=== PATIENT | female | born 1950 | race Caucasian/White ===

== ENCOUNTER 2021-01-19 10:40 | Outpatient (CLI) | payer SELFPAY | END 2021-01-19 10:41 | disposition EMS.NT | LOC: EMS 10:40 | DX: R07.9 Chest pain, unspecified (principal) ==

== ENCOUNTER 2022-03-30 15:24 | Outpatient (CLI) | payer MEDICARE | END 2022-03-30 15:25 | disposition EMS.NT | LOC: EMS 15:24 | DX: I49.9 Cardiac arrhythmia, unspecified (principal) ==

== ENCOUNTER 2023-02-07 08:00 | Outpatient (CLI) | payer MEDICARE ==
--- NOTE | 2023-02-07 19:18 | XRAY Report ---
PROCEDURE: Knee 3 View RT INDICATIONS: RIGHT KNEE PAIN TECHNIQUE: 3 views of the right knee(s) were acquired. COMPARISON: None. FINDINGS: Bones: No fractures or dislocations. No suspicious bony lesions. Tricompartmental joint space dae rowing. Mild osteophytosis but the patellofemoral compartment. Soft tissues: No knee joint effusion. No suspicious soft tissue calcifications or masses. IMPRESSION: Mild tricompartmental osteoarthritis. Reviewed by: Anuj Meek on 02/07/2023 7:17 PM PDT Approved by: Anuj Meek on 02/07/2023 7:17 PM PDT Station ID: [id number]
== END 2023-02-07 23:59 | disposition home or self-care (01) ==
LOC: DI.S 08:00
PROVIDERS: ATTEND Physician Assistant Medical
DX: M17.11 Unilateral primary osteoarthritis, right knee (principal)

== ENCOUNTER 2023-10-03 14:46 | Outpatient (CLI) | payer MEDICARE | END 2023-10-03 14:47 | disposition EMS.NT | LOC: EMS 14:46 | DX: R42 Dizziness and giddiness (principal); I49.1 Atrial premature depolarization ==

== ENCOUNTER 2024-02-28 07:52 | Outpatient (CLI) | payer MEDICARE | END 2024-02-28 23:59 | disposition EMS.NT | LOC: EMS 07:52 | DX: I49.9 Cardiac arrhythmia, unspecified (principal) ==

== ENCOUNTER 2024-03-05 17:44 | Outpatient (CLI) | payer MEDICARE | END 2024-03-05 17:45 | disposition critical access hospital (66) | LOC: EMS 17:44 | DX: S01.81XA Laceration without foreign body of other part of head, initial encounter (principal); S80.212A Abrasion, left knee, initial encounter; S80.211A Abrasion, right knee, initial encounter; W01.0XXA Fall on same level from slipping, tripping and stumbling without subsequent striking against object, initial encounter; Y93.01 Activity, walking, marching and hiking; Y92.414 Local residential or business street as the place of occurrence of the external cause | CPT/HCPCS: A0425; A0429 ==

== ENCOUNTER 2024-03-05 18:22 | Emergency (ER) | payer MEDICARE ==
--- NOTE | 2024-03-05 18:34 | ED Physician Documentation ---
History of Present Illness - Stated complaint Stated Complaint: GLF, HEAD LAC - History obtained from History obtained from: Patient - Additonal information Additional information: Patient is an 83-year-old female presenting to the emergency department after a ground-level fall. Patient was recently started on 25 mg of metoprolol by her cracker sprayer after having palpitations and PVCs on EKG findings. Patient notes she started the medication 3 days ago. She was resting at home due to feelings of lightheadedness. Today patient went out for a walk with her friends when she fell and sustained a gash to her forehead. Patient brought in by EMS blood sugar 113 on arrival ANO x 3. Patient is not on any blood thinners. Patient cannot recall how she fell she suspects she tripped and fell but is not completely sure. She denies any presyncopal symptoms prior to her fall. No postictal confusion, seizure like activity or tongue biting. PD PAST MEDICAL HISTORY - Present Medications Home Medications: Ambulatory Orders Medication Instructions Recorded Confirmed Lisinopril [Zestril] 25 mg PO DAILY 03/05/24 03/05/24 Metoprolol Succinate [Toprol Xl] 25 mg PO DAILY 03/05/24 03/05/24 - Allergies Allergies/Adverse Reactions: Allergies Allergy/AdvReac Type Severity Reaction Status Date / Time No Known Drug Allergies Allergy Verified 03/05/24 18:34 Results - Vitals Vitals: Vital Signs - 24 hr 03/05/24 03/05/24 03/05/24 18:28 21:31 22:53 Temperature 36.3 C L Heart Rate 79 78 63 Respiratory 18 18 14 Rate Blood Pressure 174/111 H 168/90 H 147/64 H O2 Saturation 99 99 99 Oxygen O2 Source Room air - EKG (time done) 2256 EKG releavant findings:: EKG personally interpreted by author of this note. Relevant findings are: Rate: Rate (enter#), [place], Tachy, Other Rhythm: Atrial fibrillation [place]: Normal QRS: Normal Ischemia: Non specific changes Compare to prior EKG: Old EKG unavailable Computer interpretation: Agree with computer Procedures - Laceration (location) Face left Anterior Length in cm: 3 Wound type: Curved Neurovascular status: Sensory intact, Motor intact, Vascular intact Anesthesia: Lidocaine 1% with epi Wound preparation: Irrigated copiously NS Skin layer closure: Nylon, Sutures - enter # (6) Other: Patient tolerated well, No complications, Dressing applied, Tetanus booster given PD Medical Decision Making - ED course Complexity details: reviewed old records, reviewed results ED course: Patient is an 83-year-old female who sustained laceration to head after a fall while out walking today. Patient recently was started on metoprolol by her cracker sprayer for recurrent PVCs. Patient is on lisinopril but no other medications no blood thinners. Patient notes she fell on both her knees and her head. She notes persistent pain to right knee but no other pain. EMS brought patient to emergency department she denies any nausea or pain medication prior to arrival. Patient ANO x 3 on arrival blood sugar 113 vital stable here in the emergency department. Significant laceration noted to left forehead. Active bleeding noted on examination. No significant contamination or signs of foreign body to wound. Tetanus updated here in the emergency department. X-ray obtained of right knee. CT head and CT neck obtained as well due to significant fall. CT head and neck showed no acute findings. The C-spine was cleared and sutures placed in left forehead. Patient had 6 sutures placed she tolerated this well. 1030: Patient was waiting for x-ray of right knee when she was brought to the bathroom and had a lightheaded episode while standing. Patient urinated at this time and when she was transferred back to her chair she had another episode of lightheadedness. Patient has no postictal confusion no seizure-like activity. She is ANO x 3 on reevaluation. Given symptoms patient had labs obtained here in the emergency department additionally EKG obtained here in the emergency department for symptoms. Patient taken over by Dr. Estrada at 2102.
[2024-03-05] MEDS: LIDOCAINE 1%-EPI 1:100000 20 ML MDV SUBQ STA (18:57)
[2024-03-05] MEDS: TETANUS/DIPHTHERIA/PERTUSSIS 0.5 ML SYRINGE IM ONE (18:58)
--- NOTE | 2024-03-05 20:25 | CT Report ---
PROCEDURE: Head WO INDICATIONS: fall head injury TECHNIQUE: Noncontrast 4.5 mm thick angled axial sections acquired from the foramen magnum to the vertex. For r adiation dose reduction, the following was used: automated exposure control, adjustment of mA and/or kV according to patient size. COMPARISON: None. FINDINGS: Image quality: Diagnostic. CSF spaces: Basal cisterns are patent. No extra-axial fluid collections. Ventricles are normal in size and shape. Brain: No midline shift. No intracranial masses or hemorrhage. No mass effect. [place]-white matter i nterface is normal. There cerebral volume loss for age with resultant ventricular and sulcal prominen ce. There are periventricular and deep white matter chronic small vessel ischemic changes. Atheroscle rotic calcifications are noted in the intracranial segments of the bilateral internal carotid arterie s. Skull and face: Superficial soft tissue swelling and injury involving the left periorbital region. C alvarium and visualized facial bones are intact, without suspicious lesions. Sinuses: Visualized sinuses and mastoids are clear. IMPRESSION: CT head without acute intracranial abnormalities. Left periorbital soft tissue swelling/injury without underlying facial or calvarial fractures. Age-related senescent changes and sequela chronic small vessel ischemic disease. Reviewed by: Tyler Ervin MD on 03/05/2024 8:24 PM PDT Approved by: Tyler Ervin MD on 03/05/2024 8:24 PM PDT Station ID: [id number]
--- NOTE | 2024-03-05 20:27 | CT Report ---
PROCEDURE: Cervical Spine WO INDICATIONS: FALL AND HEAD INJURY TECHNIQUE: Noncontrast 3 mm thick sections acquired from the skull base to the T4 level. Sagittal and coronal r eformats were then constructed. For radiation dose reduction, the following was used: automated exp osure control, adjustment of mA and/or kV according to patient size. COMPARISON: None. FINDINGS: Image quality: Diagnostic. Bones: No acute fractures or dislocations. No acute compression fractures of the vertebral bodies. Craniocervical junction is intact. C1-C2 relationship is preserved. Visualized superior ribs are inta ct. Moderate multilevel cervical spondylosis. Soft tissues: Prevertebral soft tissues are normal in thickness. No paravertebral hematomas. No ap ical pneumothoraces. IMPRESSION: No acute, displaced fracture or traumatic subluxation. Moderate multilevel cervical spondylosis. Reviewed by: Tyler Ervin MD on 03/05/2024 8:26 PM PDT Approved by: Tlyer Ervin MD on 03/05/2024 8:26 PM PDT Station ID: [id number]
--- NOTE | 2024-03-05 23:19 | XRAY Report ---
PROCEDURE: Knee 4+V RT INDICATIONS: right knee pain TECHNIQUE: 4 views of the knee(s) were acquired. COMPARISON: None. FINDINGS: Bones: Intra-articular fracture of the mid patella. Soft tissues: Moderate knee joint effusion. No suspicious soft tissue calcifications or masses. IMPRESSION: Intra-articular fracture of the mid patella. Reviewed by: Anuj Meek MD on 03/05/2024 11:18 PM PDT Approved by: Anuj Meek MD on 03/05/2024 11:18 PM PDT Station ID: [id number]
--- NOTE | 2024-03-05 23:20 | XRAY Report ---
PROCEDURE: Chest 1V INDICATIONS: syncope TECHNIQUE: One view of the chest was acquired. COMPARISON: None. FINDINGS: Surgical changes and devices: None. Lungs and pleura: No pleural effusions or pneumothorax. Lungs are clear. Biapical scarring. Mediastinum: Mediastinal contours appear normal. Heart size is normal. Bones and chest wall: No suspicious bony lesions. Overlying soft tissues appear unremarkable. Rig ht chest wall skin fold. IMPRESSION: No acute cardiopulmonary process. Reviewed by: Anuj Meek MD on 03/05/2024 11:19 PM PDT Approved by: Anuj Meek MD on 03/05/2024 11:19 PM PDT Station ID: [id number]
[2024-03-05 23:44] LABS: BASOPHILS % (AUTO) 0.2 %; EOSINOPHILS % (AUTO) 0.2 %; HCT - HEMATOCRIT 34.9 % (37.0-47.0); HGB - HEMOGLOBIN 11.8 g/dL (12.0-16.0); LYMPHOCYTES # (AUTO) 1.4 10^3/uL (1.5-3.5); LYMPHOCYTES % (AUTO) 21.8 %; MEAN CORPUSCULAR HEMOGLOBIN 28.8 pg (27.0-31.0); MEAN CORPUSCULAR HGB CONC 33.8 g/dL (32.0-36.0); MEAN CORPUSCULAR VOLUME 85.1 fL (81.0-99.0); MEAN PLATELET VOLUME 10.2 fL (7.9-10.8); MONOCYTES # (AUTO) 0.6 10^3/uL (0.0-1.0); MONOCYTES % (AUTO) 8.7 %; NEUTROPHILS # (AUTO) 4.3 10^3/uL (1.5-6.6); NEUTROPHILS % (AUTO) 68.9 %; PLT - PLATELET COUNT 299 10^3/uL (130-450); RED CELL DISTRIBUTION WIDTH 12.9 % (12.0-15.0); WHITE BLOOD COUNT 6.3 x10^3/uL (4.8-10.8)
[2024-03-05 23:56] LABS: INR 1.1 (0.8-1.2); PT - PROTHROMBIN TIME 11.9 secs (9.9-12.6)
--- NOTE | 2024-03-06 00:01 | ED Physician Documentation ---
ED Addendum - Addendum Addendum: 03/06/24 02:24 I received signout/turnover of care on this patient from nurse practitioner Siva; please see her note for complete H&P. In brief, the patient presented due to syncopal episode at home which resulted in forehead laceration as well as right knee injury. At the time of signout, patient has already undergone CT head and neck; there were no concerning findings on these studies. Plain-film x-rays of the right knee, however, show a patellar fracture; this is in the horizontal plane but there is no significant displacement/distraction of fracture fragments. Shortly before the turnover of care, the nurse practitioner was considering discharging the patient home but, when the patient was taken to the bathroom by wheelchair, patient had another syncopal episode. This involved a complete loss of consciousness as witnessed by the ED RN. The patient spontaneously recovered (without any specific intervention). At this point, given the patient's recurrence of syncope with witnessed loss of consciousness and no apparent etiology, admission to inpatient setting for ongoing cardiac monitoring and testing as appropriate to the situation would be indicated. Unfortunately, there are no beds available at [facility] but I also do not see the need/indication for transfer to another facility. Rather, the plan is to hold the patient in the ED overnight for ongoing telemetric observation and consideration of admission to [facility] should beds become available later in the morning. It is also feasible that she ends up being discharged from the emergency department after adequate period of observation. My colleague had ordered orthostatic vital signs but, considering the knee fracture, the ED RN appropriately only tested patient lying down and then sitting up (standing was not tested). Lying down, her systolic blood pressure was 154, sitting up it dropped to 138. There was no significant difference in the heart rate in these 2 positions. Given the drop in systolic blood pressure, I then ordered 1 L normal saline IV. 03/06/24 02:34 Abnormalities on blood tests include mild hyponatremia (127), mild hypokalemia (3.1). Her troponin is very mildly elevated above the normal range but not to a concerning extent. 03/06/24 03:49 Approximately 45 minutes ago, I was informed that there is a telemetry bed available at [facility]. I thus contacted [facility] hospitalist on-call to discuss this case. Dr. Gomez requests that I discuss the patellar fracture with on-call orthopedic surgery (before considering admit to [facility] hospitalist service). I then d/w Dr. Brownlee (on-call orthopedic surgery for [facility]) who confirms that the patellar fracture is addressed in the outpatient setting; Dr. Brownlee confirms that, from orthopedic standpoint, the patellar fracture would not indicate need for admission. Before I heard back from Dr. Gomez, the patient had been told of the plans to admit her into the hospital. Although I had already discussed this with the patient before going forward with trying to get her admitted for observation status, patient is now vehemently refusing admission. She is agreeable only to staying in the emergency department for observation. Care of patient is turned over to oncoming ED physician (Dr. Pérez) at end of my shift
[2024-03-06] MEDS: SODIUM CHLORIDE 0.9% 1,000 ML IV STA (00:04)
[2024-03-06 00:07] LABS: ALBUMIN 4.1 g/dL (3.2-5.5); ALBUMIN/GLOBULIN RATIO 1.6 (1.0-2.2); BILIRUBIN,TOTAL 0.5 mg/dL (0.2-1.0); CALCIUM 8.9 mg/dL (8.5-10.3); CREATININE 0.6 mg/dL (0.6-1.3); POTASSIUM 3.1 mmol/L (3.5-4.5); TOTAL PROTEIN 6.7 g/dL (6.4-8.9)
[2024-03-06 00:10] LABS: TROPONIN I HIGH SENSITIVITY 15.3 ng/L (2.3-14.8)
[2024-03-06] MEDS: POTASSIUM CHLOR 10 MEQ/100 ML 10 MEQ/100 ML BAG IV STA (03:27)
[2024-03-06 03:44] LABS: MAGNESIUM 1.6 mg/dL (1.7-2.3)
[2024-03-06 03:50] LABS: PHOSPHORUS 3.4 mg/dL (2.5-5.0)
--- NOTE | 2024-03-06 08:56 | ED Physician Documentation ---
ED Addendum - Addendum Addendum: 03/06/24 08:52 The patient has felt well overnight. She is on the monitor overnight without any bradycardic episodes. She was having PVCs but no runs. Blood pressures remain good. Last evening she did have a drop in blood pressure on orthostatics though was not hypotensive per se. A little lightheaded. She did have a brief syncope going to the bathroom without any new injury. She had started a metoprolol for PVCs several days ago. Consideration overnight was for bradycardic episodes from it but there were none evident. I talked with her and her daughter who was on the phone with her this morning. At this point we did a overnight monitor without any bradycardia. Her blood pressure is stable. I would have her hold the metoprolol for now and talk with her hyperion developer. Her potassium and magnesium are low and that could to be factoring into it as well and consideration for hydration status. Magnesium and potassium supplements and stay well-hydrated. Hold the metoprolol for now and discuss with your hyperion developer if they want to reinstitute at a lower dose when your electrolytes are better balance etc. Regarding the knee injury, use the knee brace when up and around. You can use it for sleep as well initially. Follow-up with Ortho in about a week. Tylenol 4 times daily regularly for the pain of it. Add ibuprofen or naproxen if needed. She does have a walker at home so we did not need to provide when here. She is to get the sutures out in about a week as well. Disposition: Patient discharged home in stable condition Diagnoses: 1. Syncopal episode 2. Forehead laceration 3. Patellar fracture nondisplaced 4. Orthostatic blood pressure changes 5. Recent beta-stephanie medication 6. potassium and magnesium electrolyte disorder.
[2024-03-06] MEDS: ACETAMINOPHEN 500 MG TABLET PO STA (09:40)
[2024-03-06] MEDS: KETOROLAC 15 MG/ML VIAL IVP STA (09:40)
[2024-03-06 11:04] VITALS: BP 110/63; O2SAT 98
== END 2024-03-06 10:56 | disposition home or self-care (01) ==
LOC: EDUNIT# → ED 18:22
DX: I95.1 Orthostatic hypotension (principal); E87.6 Hypokalemia; E83.42 Hypomagnesemia; S01.81XA Laceration without foreign body of other part of head, initial encounter; S89.91XA Unspecified injury of right lower leg, initial encounter; S82.001A Unspecified fracture of right patella, initial encounter for closed fracture; W18.30XA Fall on same level, unspecified, initial encounter; Y93.01 Activity, walking, marching and hiking; I49.3 Ventricular premature depolarization; Z79.899 Other long term (current) drug therapy
CPT/HCPCS: 12013; 36415; 70450; 71045; 72125; 73564; 80053; 82550; 83735; 84100; 84484; 85025; 85610; 90471; 90715; 93005; 96365; 96375; 99284; A9270